=== PATIENT | female | born 1965 | race Caucasian/White ===

== ENCOUNTER → 2016-11-10 | Day surgery (SDC) | payer MEDICAID ==
[~2016-11-10] MED LIST: LR 1,000 ML IV ONE; MIDAZOLAM 2 MG/2 ML VIAL IVP ONE; NALOXONE HCL 0.4 MG/ML INJ IVP PRN; PROPOFOL 200 MG/20 ML VIAL ONE; fentaNYL 100 MCG/2 ML INJ ONE
--- NOTE | 2016-11-10 10:58 | PDANEPAE ---
ANE History of Present Illness screening colonoscopy ANE Past Medical History - Cardiovascular History Hx Hypertension: No Hx Arrhythmias: No Hx Chest Pain: No Hx Coronary Artery / Peripheral Vascular Disease: No Hx CHF / Valvular Disease: No Hx Palpitations: No - Pulmonary History Hx COPD: No Hx Asthma/Reactive Airway Disease: No Hx Recent Upper Respiratory Infection: No Hx Oxygen in Use at Home: No - Neurologic History Hx Cerebrovascular Accident: No Hx Seizures: No Hx Dementia: No - Endocrine History Hx Diabetes: No - Renal History Hx Renal Disorders: Yes - Liver History Hx Hepatic Disorders: No - Neurological & Psychiatric Hx Hx Neurological and Psychiatric Disorders: Yes - Cancer History Hx Cancer: No - Congenital Disorder History Hx Congenital Disorders: No - GI History Hx Gastrointestinal Disorders: Yes - Chronic Pain History Chronic Pain: No ANE Review of Systems - Exercise capacity Exercise capacity: >=4 METS (works out regularly) METS (RN): 4 METS - Systems Neurological: Reports: depressed (on meds.) ANE Patient History - Allergies Allergies/Adverse Reactions: No Known Allergies Allergy (Unverified 10/26/16 16:04) - Home Medications Home medications: home medication list seen and reviewed Home Medications: FLUoxetine 10/26/16 [Last Taken Unknown] Fish Oil 10/26/16 [Last Taken Unknown] - NPO status NPO Since - Liquids (Date): 11/10/16 NPO Since - Liquids (Time): 01:00 NPO Since - Solids (Date): 11/09/16 NPO Since - Solids (Time): 07:00 - Smoking Hx Smoking Status: Never smoked Marijuana use: No - Alcohol Use Alcohol Use: Other (one drink five days/week) - Family Anes Hx Family Anes Hx: none Family Hx Anesthesia Complications: none ANE Labs/Vital Signs - Vital Signs Blood Pressure: 112/66 Heart Rate: 64 Respiratory Rate: 18 O2 Sat (%): 95 Height: 160.02 cm Weight: 48.988 kg ANE Physical Exam - Airway Neck exam: FROM Mouth exam: normal dental/mouth exam - Pulmonary Pulmonary: clear to auscultation - Cardiovascular Cardiovascular: regular rate and rhythym - ASA Status ASA Status: II ANE Anesthesia Plan Anesthesia Plan: GA with mask
--- NOTE | 2016-11-10 11:31 | POSTOPPROG ---
Post Op Note Date of Operation: 11/10/16 Surgeon: Evan Valencia Pre-op Diagnosis: screening colonoscopy Post-op Diagnosis: same Indication: needs screening colonoscopy Procedure: Colonoscopy Findings: Normal colonoscopy Inf/Abcess present in the surg proc area at time of surgery?: No
--- NOTE | 2016-11-10 11:53 | POSTANESTH ---
Post Anesthetic Evaluation Cardiovascular Status: Normal, Stable Respiratory Status: Normal, Stable Level of Consciousness/Mental Status: Can Participate in Eval Pain Control: Adequate, Prn Tx Ordered Nausea/Vomiting Control: Adequate, Prn Tx Ordered Complications Possibly Related to Anesthesia: None Noted
[2016-11-10 11:56] VITALS: TEMP 97.7
[2016-11-10 12:07] VITALS: O2SAT 99
[2016-11-10 12:22] VITALS: BP 118/65; PULSE 49; RESP 16
--- NOTE | 2016-11-10 20:48 | GPN ---
[f rep st] PROCEDURE NOTE PREPROCEDURE DIAGNOSIS: Need for screening colonoscopy. POSTPROCEDURE DIAGNOSIS: Normal colonoscopy. PROCEDURE: Colonoscopy. MEDICATIONS: Monitored anesthesia care. INDICATIONS: The patient is a healthy 51-year-old female who is in need of a screening colonoscopy. She has no family history of colon cancer or colon polyps. The risks and benefits of the procedur e discussed with the patient. Consent obtained. Risks include, but not limited to, bleeding, perfo ration, and sedation. The patient is ASA class 2. DESCRIPTION OF PROCEDURE: The pediatric colonoscope was advanced into the terminal ileum, which chan ears normal. The ileocecal valve, appendiceal orifice, cecum, ascending colon, hepatic flexure, tra nsverse colon, splenic flexure, descending colon, sigmoid colon, and rectum were normal. Retroflexe d views of the rectum were normal. IMPRESSION: Normal screening colonoscopy. RECOMMENDATION: 1. Advance diet as tolerated. 2. Discharge to home with escort. 3. Repeat screening colonoscopy in 10 years. 4. Resume previous medications. 5. Thank you for allowing me to participate in the care of your patient. Please do hesitate to yanique chavez with questions. /[id number]/MODL
== END | disposition home or self-care (01) ==
LOC: FSGY 09:17
PROVIDERS: ATTEND Internal Medicine Gastroenterology
PROC: 0DJD8ZZ Inspection of Lower Intestinal Tract, Via Natural or Artificial Opening Endoscopic (ICD-10-PCS; principal; 2016-11-10 10:30)
DX: Z12.11 Encounter for screening for malignant neoplasm of colon (principal)
CPT/HCPCS: J2250; J2704; J3010

== ENCOUNTER → 2016-11-19 | Outpatient (CLI) | payer MEDICAID | LOC: FIMAGING 14:46 | PROVIDERS: ATTEND Nurse Practitioner Women's Health | DX: N64.4 Mastodynia (principal) | CPT/HCPCS: G0206 ==